=== PATIENT | male | born 1975 | race Caucasian/White ===

== ENCOUNTER 2019-02-17 11:34 | Emergency (ER) | payer MEDICAID ==
[~2019-02-17] VITALS: Ht 190.5 cm; Wt 111.6 kg
[2019-02-17 14:20] VITALS: BP 161/105
== END 2019-02-17 14:27 | disposition home or self-care (01) ==
LOC: ER 11:34
DX: R03.0 Elevated blood-pressure reading, without diagnosis of hypertension (principal)